=== PATIENT | male | born 1970 | race Two or more races ===

== ENCOUNTER 2020-03-08 13:02 | Emergency (ER) | payer OTHER, SELFPAY ==
[2020-03-08 13:21] VITALS: BP 129/84; PULSE 80; RESP 18; TEMP 36.9; O2SAT 99; BMI 32.9
--- NOTE | 2020-03-08 13:26 | ED_ITS ---
HPI - General Adult General Chief complaint: Abdominal Pain Stated complaint: left groin pain Time Seen by Provider: 03/08/20 13:26 Source: patient Mode of arrival: ambulatory Limitations: language barrier ( Primary [place]er-speaking, cytotechnologist/histotechnologist present for all interactions) History of Present Illness MD complaint: states sudden onset of left-sided abdomen/flank pain radiating down>groin. Onset (ago): hour(s) Location: abdomen Radiation: abdomen Severity: severe Severity scale (1-10): 10 Quality: stabbing and sharp Pain Consistency: constant Exacerbating factors: none Associated symptoms: denies other symptoms Treatments prior to arrival: none Related Data Home Medications Medication Instructions Recorded Confirmed No Known Home Meds 03/08/20 03/08/20 Previous Rx's Medication Instructions Recorded ibuprofen 800 mg PO Q8H PRN #30 tab 03/08/20 oxycodone 5 mg PO Q8H PRN #10 tab 03/08/20 tamsulosin [Flomax] 0.4 mg PO DAILY #14 cap 03/08/20 Allergies Allergy/AdvReac Type Severity Reaction Status Date / Time No Known Allergies Allergy Unverified 01/16/20 16:29 Review of Systems Review of Systems: Constitutional: No Weight loss, No Fever, No Chills, No Night Sweats, No Fatigue, No Malaise ENT/Mouth: No Hearing loss, No Ear Pain, No Nasal Congestion, No Sinus Pain, No Hoarseness, No sore throat, No Rhinorrhea, No Swallowing Difficulty Eyes: No Eye Pain, No Swelling, No Redness, No Foreign Body, No Discharge, No Vision Changes Cardiovascular: No Chest Pain, No SOB, No Dyspnea on Exertion, No Orthopnea, No Edema, No Palpitations Respiratory: No Cough, No Sputum, No Wheezing, No Smoke Exposure, No Dyspnea Gastrointestinal: No Nausea, No Vomiting, No Diarrhea, No Constipation, No abdominal Pain, No Hematochezia, No Melena Genitourinary: no irregular bleeding, No Dysuria, No Urinary Frequency, No Hematuria, No Urinary Incontinence, No Urgency, No Flank Pain, No Urinary Flow Changes, No Hesitancy Musculoskeletal: No joint pain, No Myalgias, No Joint Swelling Skin: No Skin Lesions, No rash Neuro: No Weakness, No Numbness, No Paresthesias, No Loss of Consciousness, No Dizziness, No Headache Psych: No Anxiety/Panic, No Depression Heme/Lymph: No Bruising, No Bleeding,No Lymphadenopathy Endocrine: No Polyuria, No Polydipsia, No Temperature Intolerance Yes all other systems are reviewed and are negative [facility] Past Medical History Attestation statement: The following information was validated with the patient. Medical History No known health problems Surgical History History of hernia surgery Social History Social History Advance Directives: No Advance Directives Information Provided: Yes Physical Exam Vital Signs: Vital Signs: Last Vital Signs Temp 98.4 F 03/08/20 13:21 Pulse 80 03/08/20 13:21 Resp 18 03/08/20 13:21 BP 129/84 03/08/20 13:21 Pulse Ox 99 03/08/20 13:21 Body Mass Index 32.9 Reviewed Const: General: cooperative and healthy appearing; No acute distress or intoxicated appearing Nutritional Appearance: average body habitus Orientation/consciousness: patient oriented x3 HENMT: Head: Yes normal to inspection Ears: hearing grossly normal bilaterally Eyes: General: appearance normal, both eyes and all related structures Visual Frey: normal visual frey by confrontation Neck: Neck: Yes normal visual inspection and No tender Thyroid: Thyroid normal Chest: Chest palpation & inspection: normal inspection of the chest Resp: Effort & Inspection: normal respiratory effort Cardio: Jugular venous distension: no JVD GI: Inspection: Yes normal to inspection Auscultation: normal bowel sounds : General: Yes CVA tenderness (left side ) Back/Spine/Pelvis: Back: CVA tenderness (left side ) Skin: General skin exam: no rashes or lesions noted Neuro: General: patient oriented x3 Extrem: General: Yes normal to inspection Course Course Course Narrative: resting comfortably without any pain after receiving 1 dose of Toradol and Zofran. Labs overall stable. UA positive RBC with confirmation of 5 mm stone on the left side at the left UPJ with associated [id number] hydro. UA noninfected. Patient again has no pain at this time. Case discussed urology patient will follow-up outpatient. Will give him a short course of pain medication, ibuprofen and Flomax. All traction conducted in the presence of cytotechnologist/histotechnologist, patient verbalized understanding. Stable for discharge. Medical Decision Making Lab Data Result diagrams: 03/08/20 13:40 03/08/20 13:40 Labs: Lab Results 03/08/20 03/08/20 03/08/20 Range/Units 13:40 13:40 13:40 WBC 6.9 (4.8-10.8) X10*3/uL RBC 4.42 L (4.60-5.80) X10*6/uL Hgb 14.4 (14.0-18.0) g/dl Hct 41.8 L (42-52) % MCV 94.6 (80-98) fL MCH 32.6 (27.0-33.0) pg MCHC 34.4 (31.0-36.0) g/dl RDW 11.2 (11.0-16.0) % Plt Count 169 (160-400) X10*3/uL MPV 10.4 (9.4-12.4) fL Immature Gran % (Auto) 0.1 (0.0-0.4) % Neut % (Auto) 74.1 H (45-73) % Lymph % (Auto) 18.4 L (20-40) % [place] % (Auto) 6.1 (2-11) % Eos % (Auto) 0.9 (0-4) % Baso % (Auto) 0.4 (0-2) % Lymph # (Auto) 1.3 (1.2-4.9) X10*3/uL [place] # (Auto) 0.4 (0.1-1.2) X10*3/uL Eos # (Auto) 0.1 (0.0-0.4) X10*3/uL Baso # (Auto) 0.0 (0.0-0.2) X10*3/uL Abs Immat Gran (auto) 0.01 (0.00-0.03) X10*3/uL Absolute Neuts (auto) 5.1 (2.0-8.3) X10*3/uL Absolute Nucleated RBC 0.000 (0.0-0.012) X10*3/uL Nucleated RBC % (auto) 0.0 (0.0-0.2) /100WBC Sodium 137 (135-145) mmol/L Potassium 3.8 (3.3-5.1) mmol/l Chloride 107 (96-108) mmol/L Carbon Dioxide 22 (22-29) mmol/L Anion Gap 12 (12-20) BUN 9 (9-16) mg/dL Creatinine 0.88 (0.5-1.4) mg/dL Estim Creat Clear Calc 106.8 Estimated GFR > 60 Random Glucose 111 (60-115) mg/dL Calcium 8.1 L (8.4-10.2) mg/dL Total Bilirubin 0.5 (0.0-1.0) mg/dL AST 17 (5-37) U/L ALT 20 (0-40) U/L Alkaline Phosphatase 74 (39-117) U/L Total Protein 6.7 (6.5-8.0) g/dL Albumin 4.1 (3.5-5.0) g/dL Urine Color BROWN Urine Appearance CLOUDY Urine pH 5.0 (5.0-8.0) Ur Specific [place] >= 1.030 H (1.005-1.025) Urine Protein 1+ H (NEG-TRACE) MG/DL Urine Glucose (UA) NEG (NEG) MG/DL Urine Ketones NEG (NEG) MG/DL Urine Blood 3+ H (NEG) Urine Nitrite NEG (NEG) Ur Leukocyte Esterase NEG (NEG) Urine RBC 30-49 H (0) /HPF Urine WBC 0 (0-4) /HPF Ur Squamous Epith Cells TRACE /LPF Amorphous Sediment 4+ /LPF Urine Bacteria NONE /LPF Imaging Data CT scan - abdomen: Radiologist's impression: [place] [id number] CT Scan Report Signed Patient: Wilver Cotton#: [id number] : 1970Acct:[id number] Age/Sex: 49 / MADM Date: 03/08/20 Loc: HO.ED Attending Dr: Ordering Physician: Israel Pete NP Date of Service: 03/08/20 Procedure(s): CT abdomen pelvis wo con Accession Number(s): [id number] cc: Israel Pete NP~ EXAMINATION: CT ABDOMEN AND PELVIS WITHOUT CONTRAST CLINICAL INFORMATION: Left-sided abdominal and groin pain COMPARISON: CT abdomen pelvis 09/24/2015 TECHNIQUE: Multidetector volumetric imaging was performed from the superior aspect of the liver through the pubic symphysis. Sagittal and coronal reformatted images were obtained on the technologist's workstation. This CT examination was performed using dose optimization techniques as appropriate, variously including the following: *Automated exposure control *Adjustment of mA and/or kV according to patient size (this includes techniques or standardized protocols for targeted exams where dose is matched to indication/reason for exam; i.e. extremities or head) *Use of iterative reconstruction technique DLP: 657 mGy-cm FINDINGS: LUNG BASES: Scarring is present at the lung bases. A 6 mm triangular density in the right middle lobe appears slightly larger. A small hiatal hernia is present. LIVER, GALLBLADDER, AND BILIARY TREE: The liver is normal in size, shape, and attenuation. No focal hepatic lesion or biliary ductal dilatation is present. The gallbladder is unremarkable with no evidence of radiopaque gallstones, gallbladder wall thickening, or obvious pericholecystic inflammatory changes. PANCREAS: Unremarkable. SPLEEN: Unremarkable. ADRENAL GLANDS: Unremarkable. KIDNEYS AND URETERS: The right kidney and ureter appear normal. On the left, there is an obstructing calculus present at the UPJ which is new since the prior study, producing mild to moderate hydronephrosis. This measures 5.8 x 3.2 x 5.1 mm. The stone measures 950 Hounsfield units. It is 11.8 cm from the posterior axillary line. No other left-sided calculi are seen. No renal masses are seen. BLADDER: Unremarkable. GASTROINTESTINAL TRACT: The small and large bowel are unremarkable. The appendix is unremarkable. ABDOMINAL WALL: No significant hernia is appreciated. LYMPH NODES: No retroperitoneal lymphadenopathy is seen. VASCULAR: Unremarkable. PELVIC VISCERA: Prostate and seminal vesicles are unremarkable. OSSEOUS STRUCTURES: Unremarkable. CT/CT abdomen pelvis wo con IMPRESSION: Obstructing 5.8 x 3.2 x 5.1 mm left UPJ stone with associated mild to moderate hydronephrosis. Dictated By:ELIZABETH CHAUDHRY MD Signed By:<Electronically signed by ELIZABETH CHAUDHRY MD in OV>03/08/20 1433 DD/ 1328 TD/TT: Flat Optical Element Maker: Discharge Plan Discharge Clinical Impression: Calculus of kidney Patient Disposition: Home, Self-Care Instructions: Kidney Stones (ED), How to Strain Your Urine (ED) Additional Instructions: Taking medication prescribed Drink plenty of fluids Strain urine Follow up with urologist tomorrow call for appointment Return if any concerns or worsening symptoms Thank you Prescriptions: New ibuprofen 800 mg tablet 800 mg PO Q8H PRN (Reason: pain) Qty: 30 RF: 0 tamsulosin [Flomax] 0.4 mg capsule 0.4 mg PO DAILY Qty: 14 RF: 0 oxycodone 5 mg tablet 5 mg PO Q8H PRN (Reason: pain) Qty: 10 RF: 0 No Action No Known Home Meds RF: 0 Referrals: Mukesh Anderson III, MD [Physician] - 2 days
[2020-03-08] MEDS: ondansetron HCL 4 MG/2 ML VIAL IVPUSH (13:42)
[2020-03-08] MEDS: Ketorolac Tromethamine 30 MG/ML VIAL IVPUSH (13:42)
[2020-03-08] MEDS: 0.9 % Sodium Chloride 500 ML 1000 ML IV (13:42)
[2020-03-08 13:44] LABS: MANUAL DIFF FLAG NO
[2020-03-08 13:46] LABS: Basophils Percent Auto 0.4 % (0-2); Eosinophils Absolute Auto 0.1 X10*3/uL (0.0-0.4); Eosinophils Percent Auto 0.9 % (0-4); Glucose Urine UA NEG (NEG); Hematocrit 41.8 % (42-52); Hemoglobin 14.4 g/dl (14.0-18.0); Imm Gran Abs Auto 0.01 X10*3/uL (0.00-0.03); Imm Gran Pct Auto 0.1 % (0.0-0.4); Leukocyte Esterase Urine NEG (NEG); Lymphocytes Absolute Auto 1.3 X10*3/uL (1.2-4.9); Lymphocytes Percent Auto 18.4 % (20-40); Mean Corpuscular HGB Conc 34.4 g/dl (31.0-36.0); Mean Corpuscular Hemoglobin 32.6 pg (27.0-33.0); Mean Corpuscular Volume 94.6 fL (80-98); Mean Platelet Volume 10.4 fL (9.4-12.4); Monocytes Absolute Auto 0.4 X10*3/uL (0.1-1.2); Monocytes Percent Auto 6.1 % (2-11); Neutrophils Absolute Auto 5.1 X10*3/uL (2.0-8.3); Neutrophils Percent Auto 74.1 % (45-73); Nitrite Urine NEG (NEG); Platelet Count 169 X10*3/uL (160-400); Red Blood Count 4.42 X10*6/uL (4.60-5.80); Red Cell Distribution Width 11.2 % (11.0-16.0); Specific Gravity - Urine >= 1.030 (1.005-1.025); Urine Blood 3+ (NEG); Urine Ketones NEG (NEG); Urine Protein 1+ MG/DL (NEG-TRACE); White Blood Count 6.9 X10*3/uL (4.8-10.8)
[2020-03-08 13:47] LABS: Appearance Urine CLOUDY; Color Urine BROWN
[2020-03-08 13:55] LABS: RBC Urine 30-49 /HPF (0); Squamous Epithelial Cell Urine TRACE /LPF; WBC Urine 0 /HPF (0-4)
[2020-03-08 13:56] LABS: Amorphous Sediment Urine 4+ /LPF
[2020-03-08 14:00] VITALS: PULSE 84; RESP 18; TEMP 37
[2020-03-08 14:19] LABS: Alanine Aminotransferase 20 U/L (0-40); Albumin Level 4.1 g/dL (3.5-5.0); Alkaline Phosphatase 74 U/L (39-117); Anion Gap 12 (12-20); Aspartate Amino Transferase 17 U/L (5-37); Bilirubin Total 0.5 mg/dL (0.0-1.0); Blood Urea Nitrogen 9 mg/dL (9-16); Calcium 8.1 mg/dL (8.4-10.2); Carbon Dioxide 22 mmol/L (22-29); Chloride 107 mmol/L (96-108); Creatinine Clr Calc Pharmacy 106.8; Estimated Glomerular Filt Rate > 60; Glucose Random 111 mg/dL (60-115); Potassium 3.8 mmol/l (3.3-5.1); Sodium 137 mmol/L (135-145); Total Protein 6.7 g/dL (6.5-8.0)
[2020-03-08 16:00] VITALS: BP 120/64; PULSE 84; RESP 18; TEMP 36.6; O2SAT 100
== END 2020-03-08 16:37 | disposition home or self-care (01) ==
PROVIDERS: Nurse Practitioner Primary Care; Emergency Provider Emergency Medicine
DX: N20.0 Calculus of kidney (principal); R10.32 Left lower quadrant pain
CPT/HCPCS: 36415; 74176; 80053; 81001; 85025; 96361; 96374; 96375; 99284; J1885; J2405

== ENCOUNTER 2023-12-18 21:21 | Emergency (ER) | payer MEDICAID, SELFPAY ==
--- NOTE | ~2023-12-18 | XR_ITS ---
EXAMINATION: XR FOOT, RIGHT CLINICAL INFORMATION: Pain and swelling. COMPARISON: None available. TECHNIQUE: AP, lateral, and oblique views of the right foot. FINDINGS: There is a nondisplaced fracture base of right fifth metatarsal/stones fracture. No additional fracture seen. Mild soft tissue swelling along the fifth metatarsal and dorsal foot... The ankle mortise and subtalar joints are normal. XR/XR foot RT min 3V IMPRESSION: Nondisplaced fracture base of fifth metatarsal. There is mild soft tissue swelling along the dorsal foot and adjacent to the fifth metatarsal
[2023-12-18 22:34] VITALS: BP 116/70; PULSE 69; RESP 16; TEMP 36.4; O2SAT 99; BMI 31.6
--- NOTE | 2023-12-19 00:45 | ED_ITS ---
HPI - Extremity Injury (Lower) General Chief Complaint: Extremity Injury, Lower Stated Complaint: LT foot injury Time Seen by Provider: 12/19/23 00:34 Source: patient and family Mode of arrival: ambulatory Limitations: no limitations History of Present Illness ED Provider: HALEY APPLE Narrative: 53 yo male here with slip and fall yesterday injuring R foot going downstairs denies any other injuries still hurts to walk came to get it checked out no prior injuries to that foot. MD complaint: foot injury Onset (ago): day(s) (1) Injury: Right: foot Type of Injury: blunt Place: home Severity: moderate Relieving factors: immobilization and rest Exacerbating factors: weight bearing and movement Context: fall Associated symptoms: snap/pop sensation and swelling Other symptoms: none Treatments prior to arrival: cold therapy Related Data Previous Rx's ?Medication ?Instructions ?Recorded ibuprofen 800 mg tablet 800 mg PO Q8H PRN pain #30 tabs 03/08/20 oxycodone 5 mg tablet 5 mg PO Q8H PRN pain #10 tabs 03/08/20 tamsulosin 0.4 mg capsule (Flomax) 0.4 mg PO DAILY #14 caps 03/08/20 hydrocodone 5 mg-acetaminophen 325 1 tab PO Q6H PRN pain #10 tabs 12/19/23 mg tablet ibuprofen 600 mg tablet 600 mg PO Q6H PRN pain #30 tabs 12/19/23 Allergies Allergy/AdvReac Type Severity Reaction Status Date / Time No Known Allergies Allergy Verified 12/18/23 22:35 Review of Systems Review of Systems: Constitutional : No Fever, No Chills ENT/Mouth : No Ear Pain, No Hoarseness, No sore throat Eyes: No Eye Pain, No Swelling, No Redness, No Foreign Body Cardiovascular : No Chest Pain, No SOB Respiratory : No Cough, No Dyspnea Gastrointestinal : No Nausea, No Vomiting, No Diarrhea, No abdominal Pain Genitourinary : No Dysuria, No Hematuria Musculoskeletal : positive joint pain, No Myalgias, pos Joint Swelling Skin : No Skin lacerations, No rash Neuro : No Weakness, No Numbness, No Loss of Consciousness, No Dizziness, No Headache All other systems reviewed and are negative [facility] Past Medical History Attestation statement: The following information was validated with the patient. Source: old records reviewed Medical History No known health problems Surgical History History of hernia surgery Social History Social History (Updated 12/19/23 @ 00:53 by Delicia Maldonado DO) Patient Tobacco Use Status: Tobacco use Unknown Physical Exam Vital Signs: Vital Signs: Last Vital Signs Temp 97.6 F 12/18/23 22:34 Pulse 69 12/18/23 22:34 Resp 16 12/18/23 22:34 BP 116/70 12/18/23 22:34 Pulse Ox 99 12/18/23 22:34 O2 Del Method Room Air 12/18/23 22:34 BMI result Body Mass Index 31.6 Appearance: Alert. Oriented X3. No acute distress. Eyes: Pupils equal, round and reactive to light. ENT: Pharynx normal. Neck: Normal inspection. CVS: Pulses normal. Respiratory: No respiratory distress. Abdomen: atraumatic Skin: Skin warm and dry. Normal skin color. Extremities: No lower extremity edema. R foot ttp along R 5th metatarsal NV intact swelling noted Neuro: Oriented X 3. No motor deficit. No sensory deficit. Medical Decision Making Medical Decision Making MDM Narrative: 53 yo male otherwise healthy here with c/o R foot injury s/p fall at this time will need xray suspect possible strain vs fracture no other injury reported - PO pain medications ordered. Differential Diagnosis Differential Diagnoses: The differential diagnosis associated with the presentation includes sprain, strain, fracture Independent Interpretation I performed an independent interpretation of an: Plain X-Ray (+ 5th metatarasal injury) Radiology Impression Discussion of test interpretation with radiology: I have reviewed the radiologist's reading. Independent Historian Clinical information obtained from an independent historian. History obtained from or confirmed by: Spouse Prescription Management I considered prescription management with: Pain Medication Procedures Orthopedic Splinting/Casting Injury #1: Side: right Lower Extremity Injury Location: foot Lower Extremity Immobilizer: post-op shoe Other Orthopedic Equipment: crutches Additional Comments: NV intact Discharge Plan Discharge Clinical Impression: Foot fracture, right Patient Disposition: Home, Self-Care Instructions: Foot Fracture in Adults (ED) Additional Instructions: no weight bearing return for cold blue foot worsening pain or any other concerns keep elevated ice call orthopedics tomorrow for outpatient appointment Nondisplaced fracture base of fifth metatarsal. There is mild soft tissue swelling along the dorsal foot and adjacent to the fifth metatarsal Prescriptions: New hydrocodone-acetaminophen 5-325 mg tablet 1 tab PO Q6H PRN (Reason: pain) Qty: 10 0RF Rx Instructions: partial fill okay; Partial Fill upon patient request. ibuprofen 600 mg tablet 600 mg PO Q6H PRN (Reason: pain) Qty: 30 0RF No Action ibuprofen 800 mg tablet 800 mg PO Q8H PRN (Reason: pain) Qty: 30 0RF tamsulosin [Flomax] 0.4 mg capsule 0.4 mg PO DAILY Qty: 14 0RF oxycodone 5 mg tablet 5 mg PO Q8H PRN (Reason: pain) Qty: 10 0RF Referrals: [facility] [Provider Group] (call tomorrow) Stand Alone Forms: Work/School Release Print Language: Comoran
[2023-12-19 01:00] VITALS: BP 124/81; PULSE 78; RESP 16; TEMP 36.6; O2SAT 97
[2023-12-19] MEDS: HYDROcodone Bit/Acetam 5/325 TABLET 1 TAB PO (01:11)
[2023-12-19 01:14] VITALS: BP 124/81; PULSE 78; RESP 16; TEMP 36.6; O2SAT 97
== END 2023-12-19 01:15 | disposition home or self-care (01) ==
PROVIDERS: Emergency Provider Emergency Medicine
DX: S92.901A Unspecified fracture of right foot, initial encounter for closed fracture (principal); M79.671 Pain in right foot; W10.9XXA Fall (on) (from) unspecified stairs and steps, initial encounter; Y93.89 Activity, other specified; Y92.89 Other specified places as the place of occurrence of the external cause; Y99.8 Other external cause status
CPT/HCPCS: 29515; 73630; 99283; 99284

== ENCOUNTER 2023-12-26 08:18 | Outpatient (AMB) | payer MEDICAID, SELFPAY ==
--- NOTE | 2023-12-26 08:19 | A.OFFVIS_ITS ---
Vital Signs 12/26/23 08:24 Height 5 ft 5 in Weight 190 lb BMI 31.6 Intake Visit Reasons: FC - right ankle sprian, DOI 12/18/23 Intake Note: Wilver is a 53 year old male who presents today with a post op shoe for a evaluation of his right ankle sprain, DOI 12/18/23. Patient reports he slipped and fell going down the stairs. He states that his pain is worse when he is walking. Currently his pain is 4 out of 10 on the pain scale. Information Security Analyst Services: Information Security Analyst Offered & Declined (Patient would like his son) Allergies No Known Allergies Allergy (Verified 12/26/23 08:21) HPI HPI FC - right ankle sprian, DOI 12/18/23: Details: 53-year-old male, who is [place]ese speaking, presents in the office today, as a new patient, for an evaluation of left foot pain. The patient presented to the ED on 12/19/23 status post a slip and fall while going down the stairs. X-rays were obtained. The patient was placed in a post-op shoe and supplied with crutches. She was also prescribed hydrocodone-acetaminophen 5-325 mg PO Q6H PRN and ibuprofen 600 mg PO Q6H PRN. ? ? While in the office today, the patient presents in a postoperative shoe. He confirms a slip and fall while going down the stairs. His family member states this caused him to roll his left ankle outwardly. He confirms the injury occurred on a Monday about one to two weeks ago. He states his pain increases with ambulation and rates his current pain as a 4/10. The patient reports a slight improvement in his pain. ? Patient presents in the office today with a male family member, his son, who is translating for him.? ? Patient currently works as a [employer]. ? [facility] Medical History No known health problems Surgical History History of hernia surgery Social History (Updated 12/26/23 @ 08:23 by Waylon Baez) Alcohol intake: never Patient Tobacco Use Status: Current everyday Tobacco user Cigarettes Per Day: 2 Current occupational status: employed Current occupation: [employer] Review of Systems Const All systems reviewed & are unremarkable except as noted in HPI and below Physical Exam Vital Signs: BMI result Body Mass Index 31.6 Const General: cooperative and no acute distress Orientation/consciousness: patient oriented x3 Resp Effort & Inspection: normal respiratory effort and able to speak in complete sentences Cardio Peripheral pulses: Peripheral pulses 2+ throughout Skin General skin exam: no rashes or lesions noted Neuro General: patient oriented x3 Extrem Other: Left foot: Significant ecchymosis along the dorsal aspect of the left foot at the base of the toes. Ecchymosis along the medial and lateral aspect of the left foot. Tenderness to palpation along the peroneal tendon to the base of the fifth metatarsal. Able to dorsiflex, plantarflex, pronate and supinate with mild limitation due to stiffness and pain. Sensation intact. Pedal pulse intact. Assessment & Plan Assessment & Plan (1) Left ankle sprain: Code(s): S93.402A - Sprain of unspecified ligament of left ankle, initial encounter Category: Medical Plan Mr. Cotton is a 53-year-old male, who is [place]ese speaking, presents in the office today, as a new patient, for an evaluation of left foot pain. The patient presented to the ED on 12/19/23 status post a slip and fall while going down the stairs. X-rays were obtained. The patient was placed in a post-op shoe and supplied with crutches. She was also prescribed hydrocodone-acetaminophen 5-325 mg PO Q6H PRN and ibuprofen 600 mg PO Q6H PRN. ? ? While in the office today, the patient presents in a postoperative shoe. He confirms a slip and fall while going down the stairs. His family member states this caused him to roll his left ankle outwardly. He confirms the injury occurred on a Monday about one to two weeks ago. He states his pain increases with ambulation and rates his current pain as a 4/10. The patient reports a slight improvement in his pain. ? Patient presents in the office today with a male family member who is translating for him.? ? The patient will be transitioned into a tall walking boot, off the shelf. An order for physical therapy was made in the office today to begin to work on ROM. I recommend the use of anti-inflammitories like, Aleve or ibuprofen PRN for pain and edema. I also recommend elevation and icing the left foot/ankle. Follow-up will be in six weeks, or sooner if needed. ? ? X-rays of the left foot, obtained on 12/18/23, revealed: Nondisplaced fracture base of fifth metatarsal. There is mild soft tissue swelling along the dorsal foot and adjacent to the fifth metatarsal.? Orders: Orders PT Evaluation and Treatment Today S93.402A - Sprain of unspecified ligament of left ankle, initial encounter Medications: Discontinued hydrocodone-acetaminophen 5-325 mg partial fill okay; Partial Fill upon patient request. Discontinued Reason: Patient no longer taking 1 tab PO Q6H PRN 10 tabs 0RF pain Patient Instructions: Scribed by Eliana Gomez medical records library professor, for Ingrid Thomson PA-C on 12/26/2023 at 8:38 am, EST.? Coding Level of Care Code New Pt Level 4 (19495) Diagnoses Left ankle sprain S93.402A
[2023-12-26 08:24] VITALS: BMI 31.6
== END 2023-12-26 08:45 | disposition home or self-care (01) ==
PROVIDERS: Visit Provider Physician Assistant
DX: S93.402A Sprain of unspecified ligament of left ankle, initial encounter (principal)
CPT/HCPCS: 99204

== ENCOUNTER → 2023-12-26 08:18 | Outpatient (BNVA) | payer MEDICAID, SELFPAY | PROVIDERS: Visit Provider Physician Assistant | DX: S93.402A Sprain of unspecified ligament of left ankle, initial encounter (principal) | CPT/HCPCS: 99212 ==

== ENCOUNTER 2024-02-06 09:21 | Outpatient (AMB) | payer MEDICAID, SELFPAY ==
--- NOTE | 2024-02-06 09:41 | A.OFFVIS_ITS ---
Intake Visit Reasons: OV right ankle sprian, DOI 12/18/23 Intake Note: Wilver is a 53 year old male who presents today with a post op shoe for a evaluation of his right ankle sprain, DOI 12/18/23. Patient reports he he is feeling better, he is able to apply weight on his right ankle. Statistician Applied Services: Statistician Applied Present (Patient would like his son) Statistician Applied Name: Bijan ([id number]) Allergies No Known Allergies Allergy (Verified 12/26/23 08:21) HPI HPI OV right ankle sprian, DOI 12/18/23: Details: 53-year-old dominant male, who is Thai speaking, presents in the office today for a follow-up of a right ankle sprain that occurred on 12/18/23 status post a slip and fall when going down the stairs. I last saw the patient in the office on 12/26/23 when he was transitioned into a tall walking boot and referred to physical therapy. He was recommended to use anti-inflammatory medications for pain relief and also recommended elevation and icing the left foot. While in the office today, the patient presents with a slide sandal. The patient reports he is feeling better. He is able to bear weight on his right ankle with no pain. [facility] Medical History No known health problems Surgical History History of hernia surgery Social History Alcohol intake: never Patient Tobacco Use Status: Current everyday Tobacco user Cigarettes Per Day: 2 Current occupational status: employed Current occupation: [employer] Review of Systems Const All systems reviewed & are unremarkable except as noted in HPI and below Physical Exam Const General: cooperative, healthy appearing and no acute distress Resp Effort & Inspection: normal respiratory effort and able to speak in complete sentences Cardio Rate: regular rate Peripheral pulses: Peripheral pulses 2+ throughout GI Palpation (GI): Soft to palpation Skin Lesions: no lesions Rashes: no rashes Extrem Other: Left foot and ankle: Normal to inspection. No ecchymosis, erythema, or edema. The patient is able to demonstrate dorsiflexion, plantar flexion, pronation and supination. No tenderness to palpation at the base of the 5th metatarsal over the fracture site. Negative anterior drawer. Sensation intact. Pedal pulse intact. Assessment & Plan Assessment & Plan (1) Right ankle sprain: Code(s): S93.401A - Sprain of unspecified ligament of right ankle, initial encounter Category: Medical Plan Mr. Cotton is a 53-year-old dominant male, who is Thai speaking, presents in the office today for a follow-up of a right ankle sprain that occurred on 12/18/23 status post a slip and fall when going down the stairs. I last saw the patient in the office on 12/26/23 when he was transitioned into a tall walking boot and referred to physical therapy. He was recommended to use anti- inflammatory medications for pain relief and also recommended elevation and icing the left foot. While in the office today, the patient presents with a slide sandal. The patient reports he is feeling better. He is able to bear weight on his right ankle with no pain. The patient was presented to the office today in slides. He was educated on wearing supportive footwear. He can return to normal activities as tolerated, using pain as his guide. Follow-up will be PRN, or sooner if needed. Patient Instructions: Scribed by Marianne Brasher medical assistant instructor, for Ingrid Thomson PA-C on 02/06/24 at 9:46 am EST. Coding Level of Care Code Global (17521) Diagnoses Right ankle sprain S93.401A
== END 2024-02-06 09:54 | disposition home or self-care (01) ==
PROVIDERS: Visit Provider Physician Assistant
DX: S93.401A Sprain of unspecified ligament of right ankle, initial encounter (principal)
CPT/HCPCS: 99212

== ENCOUNTER → 2024-02-06 09:21 | Outpatient (BNVA) | payer MEDICAID, SELFPAY | PROVIDERS: Visit Provider Physician Assistant | DX: S93.401D Sprain of unspecified ligament of right ankle, subsequent encounter (principal); W10.9XXD Fall (on) (from) unspecified stairs and steps, subsequent encounter | CPT/HCPCS: 99212 ==